=== PATIENT | male | born 1995 | race Caucasian/White ===

== ENCOUNTER 2017-01-20 00:48 | Emergency (ER) | payer OTHER ==
[~2017-01-20] VITALS: Ht 177.8 cm; Wt 87.4 kg
[~2017-01-20 00:48] MED LIST: ADDERALL XR25 MG PO; ADDERALL20 MG PO; BENTYL10 MG PO; CARBAMAZEPINE200 M1 PO; EFFEXOR37.5 MG PO; HYDROXYZINE PAM50 MG PO; OCUFLOX 0.100 DROP/5 LEFT EYE; ROZEREM8 MG PO; TRILEPTAL75 MG PO; ZOFRAN4 MG PO
[2017-01-20 02:29] VITALS: BP 127/85
== END 2017-01-20 02:29 | disposition home or self-care (01) ==
LOC: EME 00:48
PROC: 0HQFXZZ Repair Right Hand Skin, External Approach (ICD-10-PCS; principal; 2017-01-20)
DX: S61.214A Laceration without foreign body of right ring finger without damage to nail, initial encounter (principal); S60.410A Abrasion of right index finger, initial encounter; S60.412A Abrasion of right middle finger, initial encounter; W29.0XXA Contact with powered kitchen appliance, initial encounter
CPT/HCPCS: 99281; 99284; S0020